=== PATIENT | male | born 1980 | race Caucasian/White ===

== ENCOUNTER 2017-07-24 11:36 | Emergency (ER) | payer SELFPAY ==
[2017-07-24] MEDS ORDERED: Ketorolac Tromethamine 30 MG/ML VIAL ONE (12:58)
[2017-07-24] MEDS ORDERED: Cyclobenzaprine 10 MG TAB ONE (12:58)
--- NOTE | 2017-07-24 13:11 | RAD ---
LEFT SHOULDER 3 VIEWS: Date: 07/24/17 HISTORY: 37-year-old male with left shoulder pain. IMPRESSION: No fracture, dislocation, or other significant acute osseous abnormality. POS: [facility]
--- NOTE | 2017-07-24 13:12 | RAD ---
BILATERAL RIBS 4 VIEWS: Date: 07/24/17 HISTORY: 37-year-old male with left rib pain, as well as left shoulder and arm pain. FINDINGS: There is some slight cortical irregularity of the anterior left rib at the costochondral junction reg ion. This could possibly represent a nondisplaced acute fracture. There is no pneumothorax or pleural effusion. IMPRESSION: Questionable cortical irregularity at the anterior 7th rib near the costochondral junction, possibly an acute nondisplaced fracture. No pneumothorax or pleural effusion, or other acute process. POS: [facility]
== END 2017-07-24 15:15 | disposition home or self-care (01) ==
LOC: ERS 11:36
DX: S22.32XA Fracture of one rib, left side, initial encounter for closed fracture (principal); F43.10 Post-traumatic stress disorder, unspecified; F17.200 Nicotine dependence, unspecified, uncomplicated; V80.010A Animal-rider injured by fall from or being thrown from horse in noncollision accident, initial encounter
CPT/HCPCS: 71111; 96374; J1885